=== PATIENT | male | born 1995 | race Caucasian/White ===

== ENCOUNTER 2024-01-03 08:16 | Outpatient (CLI) | payer OTHER, SELFPAY ==
[2024-01-03 09:18] LABS: Glucose,Fasting 95 mg/dl (74-100)
[2024-01-03 09:35] LABS: 25-OH Vitamin D, Total 42.9 ng/mL (30-100)
[2024-01-04 10:26] LABS: Insulin Level Total 20.1 uIU/mL (2.6-24.9)
[2024-01-04 11:14] LABS: C-Peptide 2.9 ng/mL (1.1-4.4)
[2024-01-04 14:31] LABS: Adrenocorticotropic Hormone 78.1 pg/mL (7.2-63.3); FSH 4.5 mIU/mL (1.5-12.4); LH 5.9 mIU/mL (1.7-8.6); Sex Hormone Binding Globulin 24.4 nmol/L (16.5-55.9)
[2024-01-09 22:07] LABS: Free Testosterone (Direct) 9.4 pg/mL (9.3-26.5); Testosterone, Total, LC/MS 323.8 ng/dL (264.0-916.0)
== END 2024-01-03 23:59 | disposition home or self-care (01) ==
LOC: LAB 08:18
PROVIDERS: PCP Internal Medicine; Referring Provider Nurse Practitioner Family; Visit Provider Internal Medicine
DX: E16.2 Hypoglycemia, unspecified (principal); R53.83 Other fatigue; E55.9 Vitamin D deficiency, unspecified
CPT/HCPCS: 36415; 82024; 82306; 82533; 82947; 83001; 83002; 83525; 84270; 84681

== ENCOUNTER → 2024-11-28 06:51 | Outpatient (CLI) | payer OTHER, SELFPAY ==
--- OUTSIDE RECORDS SUMMARY | 2024-11-28 06:58 | XMS_ITS | Clinical Summary ---
Author Organization [facility] Address [address] [place] [address] Care Team Providers Care Ese Teacher Name Role Phone Tanesha Sanford MD Primary Care Provider +1- [phone] Allergies No known active allergies Medications No known medications Social History Tobacco Use Types Packs/Day Years Used Date Smoking Tobacco: Never Smokeless Tobacco: Never Tobacco Cessation:Counseling Given: Not Answered Alcohol Use Standard Drinks/Week Comments Yes 0 (1 standard drink = 0.6 oz pur e alcohol) Sex and Gender Information Value Date Recorded Sex Assigned at Not on file Legal Sex Male 7:36 PM EDT Gender Identity Not on file Sexual Orientation Not on file Last Filed Vital Signs Vital Sign Reading Time Taken Comments Blood Pressure 132/84 05/06/2023 10:55 AM EDT Pulse - - Temperature - - Respiratory Rate - - Oxygen Saturation - - Inhaled Oxygen Concentration - - Weight 111 kg (245 lb) 05/06/2023 10:55 AM EDT Height 175.3 cm (5' 9 ) 05/06/2023 10:55 AM EDT Body Mass Index 36.18 05/06/2023 10:55 AM EDT Plan of Treatment Health Maintenance Due Date Last Done Comments [facility]-Depression Screening 1996 [facility]-HIV Screening 1996 [facility]-Hepatitis C Screening 1996 [facility]-/Child/Adol SDOH Screenings 1996 [facility]-Varicella Vaccines (1 of 2 - 13+ 2-dose series) 01/30/2009 [facility]- SDOH Screenings 01/30/2014 [facility]-Adult SDOH Screenings 01/30/2014 HPV Vaccines (1 - 3-dose SCDM series) 01/30/2023 [facility]-COCYE-85 Vaccine (3 - season) 2024 07/29/2020, 07/07/2020 [facility]-Influenza Vaccine (#1) 10/22/202401/11, 01/20/2018, 07/07/2017 [facility]-DTaP,Tdap,and Td Vaccines (7 - Td or Tdap) 07/06/2027 07/05/2017, 10/09/2007, 09/05/2001, Additional history exists [facility]-Zoster Vaccines (1 of 2) 01/30/2046 [facility]-HIB Vaccines Completed 10/31/1998, , 1996 [facility]-IPV Vaccines Completed 07/05/2017, , 03/06/1997, Additional history exists [facility]-Hepatitis A Vaccines Aged Out , 09/15/2017, 07/07/2017 No longer eligible based on patient's age to complete this topic [facility]-Hepatitis B Vaccines Completed 019, 09/15/2017, 07/07/2017, Additional history exists [facility]-Obesity Intervention Completed 05/06/2023 [facility]-Pneumococcal Vaccine: Pediatrics (0 to 5 Years) and At-Risk Patients (6 to 49 Years) Aged Out No longer eligible based on patient's age to complete this topic [facility]-Rotavirus Vaccines Aged Out No lo nger eligible based on patient's age to complete this topic Care Teams Ese Teacher Relationship Specialty Start Date End Date Tanesha Sanford MD [address] [place] [address] PCP - General 05/06/23
--- OUTSIDE RECORDS SUMMARY | 2024-11-28 06:58 | XMS_ITS | Encounter Summary ---
Author Organization [facility] Address [address] [id number] Care Team Providers Care Lead Cytogenetic Technologist Name Role Phone Tanesha Sanford MD Primary Care Provider +1- [phone] Encounter Details Date Type Department Care Team ([facility] st Contact Info) Description 02/03/2023 Orders Only External Location [address] [place] [address] Tanesha Sanford MD [address] [place] [address] Social History Tobacco Use Types Packs/Day Years Used Date Smoking Tobacco: Never Assessed Sex and Gender Information Value Date Recorded Sex Assigned at Not on file Legal Sex Male 7:36 PM EDT Gender Identity Not on file Sexual Orientation Not on file documented as of this encounter Plan of Treatment Not on file documented as of this encounter Procedures Procedure Name Priority Date/Time Associated Diagnosis Comments XR OUTSIDE IMAGES 02/03/2023 8:57 AM EST documented in this encounter Results * XR OUTSIDE IMAGES (02/03/2023 8:57 AM EST) Anatomical Region Laterality Modality Radiographic Stephanie ging 02/03/2023 8:57 AM EST us Tanesha Sanford MD IMG XR PROCEDURES Final Re sult documented in this encounter Visit Diagnoses Not on filedocumented in this encounter Care Teams Lead Cytogenetic Technologist Relationship Specialty Start Date End Date Tanesha Sanford MD [address] [place] [id number] PCP - General 05/06/23 documented as of this encounter
--- OUTSIDE RECORDS SUMMARY | 2024-11-28 06:58 | XMS_ITS | Encounter Summary ---
Author Organization [facility] Address [address] [place] [address] Care Team Providers Care Carpenter Maintenance Name Role Phone Tanesha Sanford MD Primary Care Provider +1- [phone] Encounter Details Date Type Department Care Team (Late st Contact Info) Description 02/25/2023 Orders Only External Location [address] [place] [address] Tanesha Sanford MD [address] [place] [address] Social History Tobacco Use Types Packs/Day Years [...] Procedure Name Priority Date/Time Associated Diagnosis Comments MR OUTSIDE IMAGES 02/25/2023 9:52 AM EST documented in this encounter Results * MR transfer of outside films (02/25/2023 9:52 AM EST) Anatomical Region Laterality Modality Magnetic Resonan ce 02/25/2023 9:52 AM EST us Tanesha Sanford MD IMG MRI PROCEDURES Final R esult documented in this encounter Visit Diagnoses Not on filedocumented in this encounter Care Teams Carpenter Maintenance Relationship Specialty Start Date End Date Tanesha Sanford MD [address] [place] [id number] PCP - General 05/06/23 documented as of this encounter
--- OUTSIDE RECORDS SUMMARY | 2024-11-28 06:58 | XMS_ITS | Clinical Summary ---
Author Organization [facility] Address [address] [place] [address] Care Team Providers Care Petroleum Refining Firer Name Role Phone Tanesha Sanford MD Primary Care Provider + Allergies No known active allergies Medications No known medications Social History Tobacco Use Types Packs/Day Years Used Date Smoking Tobacco: Never Smokeless Tobacco: Never Tobacco Cessation:Counseling Given: Not Answered Alcohol Use Standard Drinks/Week Comments Never 0 (1 standard drink = 0.6 oz pur e alcohol) Sex and Gender Information Value Date Recorded Sex Assigned at Not on file Legal Sex Male 1:50 PM EDT Gender Identity Not on file Sexual Orientation Not on file Last Filed Vital Signs Vital Sign Reading Time Taken Comments Blood Pressure 112/68 12/28/2023 9:25 AM EST Pulse 86 12/28/2023 9:25 AM EST Temperature - - Respiratory Rate - - Oxygen Saturation 98% 12/28/2023 9:25 AM EST Inhaled Oxygen Concentration - - Weight 114 kg (251 lb 9.6 oz) 12/28/2023 9:25 AM EST Height 175.3 cm (5' 9 ) 12/28/2023 9:25 AM EST Body Mass Index 37.15 12/28/2023 9:25 AM EST Plan of Treatment Health Maintenance Due Date Last Done Comments TDAP/TD VACCINES (2 - Td or Tdap) 10/08/2017 008 ANNUAL PHYSICAL 12/28/2023 HEPATITIS C SCREENING 12/28/2023 INFLUENZA VACCINE 09/21/2024 12/14/2023 Pneumococcal Vaccine 0-49 Aged Out No longer eligible based on patient's age to complete this topic Insurance [facility] [facility] Care Teams Petroleum Refining Firer Relationship Specialty Start Date End Date Tanesha Sanford MD [address] [place], [place] [address] [address] PCP - General Internal Medicine 12/28/23
== END ==
PROVIDERS: PCP Nurse Practitioner Family; Visit Provider Nurse Practitioner Family
DX: G47.30 Sleep apnea, unspecified (principal)